=== PATIENT | male | born 1955 | race Caucasian/White ===

== ENCOUNTER 2021-07-17 08:51 | Outpatient (REF) | payer MEDICARE, OTHER, SELFPAY ==
[2021-07-17 12:11] LABS: Prostate Specific Antigen 0.12 ng/mL (<0.05-4.0)
== END 2021-07-17 08:52 | disposition home or self-care (01) ==
LOC: HO.HMGCLDS 08:51
PROVIDERS: Visit Provider Urology
DX: N40.1 Benign prostatic hyperplasia with lower urinary tract symptoms (principal); Z12.5 Encounter for screening for malignant neoplasm of prostate
CPT/HCPCS: 36415; 84153

== ENCOUNTER 2021-08-27 09:54 | Outpatient (REF) | payer MEDICARE, OTHER, SELFPAY ==
[2021-08-27 11:40] LABS: Hematocrit 43.2 % (42-52); Mean Corpuscular HGB Conc 32.4 g/dl (31.0-36.0); Mean Corpuscular Hemoglobin 28.9 pg (27.0-33.0); Mean Corpuscular Volume 89.3 fL (80-98); Mean Platelet Volume 9.2 fL (9.4-12.4); Platelet Count 243 X10*3/uL (160-400); Red Blood Count 4.84 X10*6/uL (4.60-5.80); Red Cell Distribution Width 12.6 % (11.0-16.0); White Blood Count 6.1 X10*3/uL (4.8-10.8)
[2021-08-27 11:56] LABS: Estimated Average Glucose 108 mg/dL; Hemoglobin A1c % 5.4 %
[2021-08-27 12:09] LABS: Alanine Aminotransferase 10 U/L (0-40); Albumin Level 4.1 g/dL (3.5-5.0); Alkaline Phosphatase 79 U/L (39-117); Anion Gap 12 (12-20); Aspartate Amino Transferase 10 U/L (5-37); Bilirubin Total 0.5 mg/dL (0.0-1.0); Blood Urea Nitrogen 12 mg/dL (9-16); Calcium 8.8 mg/dL (8.4-10.2); Carbon Dioxide 29 mmol/L (22-29); Chloride 103 mmol/L (96-108); Cholesterol 165 mg/dL; Estimated Glomerular Filt Rate > 60; Glucose Random 97 mg/dL (60-115); HDL Cholesterol 49 mg/dL; LDL Cholesterol Calculated 89 mg/dl; Potassium 4.5 mmol/L (3.3-5.1); Sodium 139 mmol/L (135-145); Total Protein 6.5 g/dL (6.5-8.0); Triglycerides 137 mg/dL
[2021-08-27 12:24] LABS: Prostate Specific Antigen Scr < 0.05 ng/mL (<0.05-4.0)
== END 2021-08-27 09:55 | disposition home or self-care (01) ==
LOC: HO.HMGCLDS 09:54
PROVIDERS: Visit Provider Physician Assistant Medical
DX: Z00.00 Encounter for general adult medical examination without abnormal findings (principal); Z12.5 Encounter for screening for malignant neoplasm of prostate
CPT/HCPCS: 36415; 80053; 80061; 83036; 84153; 85027

== ENCOUNTER 2022-08-06 11:59 | Outpatient (REF) | payer MEDICARE, OTHER, SELFPAY ==
[2022-08-06 14:45] LABS: Prostate Specific Antigen 0.09 ng/mL (<0.05-4.0)
== END 2022-08-06 12:00 | disposition home or self-care (01) ==
LOC: HO.HMGCLDS 11:59
PROVIDERS: PCP Pediatrics; Visit Provider Physician Assistant
DX: N40.1 Benign prostatic hyperplasia with lower urinary tract symptoms (principal); Z12.5 Encounter for screening for malignant neoplasm of prostate
CPT/HCPCS: 36415; 84153

== ENCOUNTER 2022-10-03 12:54 | Outpatient (RCR) | payer MEDICARE, OTHER, SELFPAY ==
[2022-10-23 16:40] LABS: Blood Urea Nitrogen 15 mg/dL (9-16); Estimated Glomerular Filt Rate > 60
== END 2023-02-12 15:00 | disposition home or self-care (01) ==
LOC: HO.WCC 12:54
PROVIDERS: PCP Pediatrics; Visit Provider Surgery
DX: S21.101A Unspecified open wound of right front wall of thorax without penetration into thoracic cavity, initial encounter (principal); T81.31XA Disruption of external operation (surgical) wound, not elsewhere classified, initial encounter; M86.18 Other acute osteomyelitis, other site; C32.9 Malignant neoplasm of larynx, unspecified; Z79.2 Long term (current) use of antibiotics
CPT/HCPCS: 11042; 17250; 36415; 82565; 84520; 87070; 87077; 87186; 87205; 88304; 97597; 99212

== ENCOUNTER 2022-10-23 15:54 | Outpatient (REF) | payer MEDICARE, OTHER, SELFPAY ==
--- NOTE | ~2022-10-23 | CT_ITS ---
EXAMINATION: CT CHEST WITH CONTRAST CLINICAL INFORMATION: Disruption of external operation, surgical wound COMPARISON: None TECHNIQUE: Multidetector volumetric CT imaging of the chest was obtained after the administration of 50 mL of Omnipaque 350 intravenous contrast without immediate adverse reactions. Axial MIP volume rendering provided. Sagittal and coronal reformatted images were obtained. This CT examination was performed using dose optimization techniques as appropriate, variously including the following: *Automated exposure control *Adjustment of mA and/or kV according to patient size (this includes techniques or standardized protocols for targeted exams where dose is matched to indication/reason for exam; i.e. extremities or head) *Use of iterative reconstruction technique DLP: 336 mGy-cm FINDINGS: [employer] COMMISSIONER: Well-inflated lungs with blunting of left CP angle. LUNGS: There is a paraseptal and centrilobular emphysema. There is prominent reticular interstitial changes and mild honeycombing seen in the dependent segment of left upper lobe. Dependent compressive atelectasis both lung bases. There are no pulmonary nodules, masses or consolidation. MEDIASTINUM: There is a tracheostomy tract seen in the lower neck with moderate scarring, right greater than left, anterior neck. Thyroid gland is not visualized. The trachea and the bronchi are widely patent. Heart size and the great vessels are normal caliber. There is no pericardial effusion. Small lymph nodes are seen in the right hilum measuring 1.4 cm in axial image 23/3. The heart size and the great vessels are normal caliber. Coronary artery calcifications are present. PLEURA: There is small left pleural effusion and trace right pleural effusion/thickening. AXILLA: Small shotty lymph nodes are seen in the axilla. UPPER ABDOMEN: Visualized liver, spleen, pancreas and bilateral adrenal glands. OSSEOUS STRUCTURES: No aggressive lytic or sclerotic process seen. There is calcification of anterior longitudinal ligament throughout the dorsal spine. No aggressive lytic or sclerotic process seen. CT/CT chest w IV con IMPRESSION: 1. Diffuse paraseptal and centrilobular emphysema with prominent reticular interstitial changes throughout both lungs likely chronic changes. There is some honeycombing appearance in the dependent segment of left upper lobe. Dependent compressive atelectasis in both lung bases. No consolidation seen. 2. There is a tracheostomy tract in the lower neck with scarring. 3. Small prominent right hilar lymph nodes measuring 1.4 cm and less. Fleischner guidelines were followed.
[2022-10-23] MEDS: iohexoL 350 MG/ML 100 ML INFUS..BTL IV (17:26)
== END 2022-10-23 15:55 | disposition home or self-care (01) ==
LOC: HO.CT 15:54
PROVIDERS: PCP Pediatrics; Visit Provider Surgery
DX: C32.9 Malignant neoplasm of larynx, unspecified (principal); T81.31XA Disruption of external operation (surgical) wound, not elsewhere classified, initial encounter
CPT/HCPCS: 71260; Q9967

== ENCOUNTER → 2022-11-12 14:22 | Outpatient (BNVA) | payer MEDICARE, OTHER, SELFPAY | PROVIDERS: PCP Pediatrics; Visit Provider Surgery | DX: T81.89XA Other complications of procedures, not elsewhere classified, initial encounter (principal); M86.9 Osteomyelitis, unspecified | CPT/HCPCS: 99202 ==

== ENCOUNTER → 2022-11-18 14:12 | Outpatient (BNVA) | payer MEDICARE, OTHER, SELFPAY | PROVIDERS: PCP Pediatrics; Visit Provider Internal Medicine | DX: A49.8 Other bacterial infections of unspecified site (principal) | CPT/HCPCS: 99202 ==

== ENCOUNTER → 2023-02-05 13:40 | Outpatient (BNVA) | payer MEDICARE, OTHER, SELFPAY | PROVIDERS: PCP Pediatrics; Visit Provider Internal Medicine | DX: A49.8 Other bacterial infections of unspecified site (principal) | CPT/HCPCS: 99212 ==